=== PATIENT | female | born 1980 | race Asian ===

== ENCOUNTER 2024-11-23 06:34 | Outpatient (REF) | payer OTHER, SELFPAY ==
--- NOTE | ~2024-11-23 | US_ITS ---
CLINICAL HISTORY: MICROSCOPIC HEMATURIA US retroperitoneum with color Doppler Comparison: None Findings: Right kidney normal size and echotexture, 10.5 cm length. No hydronephrosis. Normal color flow. No nephrolithiasis or renal masses. Left kidney normal size and echotexture, 10.7 cm in length. Mild pelviectasis. Normal color flow. No nephrolithiasis or renal masses. Urinary bladder is unremarkable. Prevoid volume one hundred fifty mL. Postvoid volume 12.3 mL. Ureteral jets are visualized bilaterally Impression: 1. Kidneys normal size and position with normal cortical width and echotexture. Mild pelviectasis on the left no obstructing calculus is demonstrated. 2. Borderline elevated postvoid residual. This document has been electronically signed by: Tyron Beavers MD on 11/23/2024 11:37:53
== END 2024-11-23 06:35 | disposition home or self-care (01) ==
LOC: HO.UMASIMG 06:34
PROVIDERS: Visit Provider Family Medicine
DX: R31.29 Other microscopic hematuria (principal)
CPT/HCPCS: 76770

== ENCOUNTER → 2024-11-23 10:00 | Outpatient (BNV) | payer OTHER, SELFPAY | PROVIDERS: Visit Provider Radiology Diagnostic Radiology | DX: N13.30 Unspecified hydronephrosis (principal) | CPT/HCPCS: 76770 ==